=== PATIENT | male | born 1980 | race Caucasian/White ===

== ENCOUNTER 2019-12-22 05:50 | Day surgery (SDC) | payer OTHER ==
[2019-12-22 07:18] VITALS: BMI 37.1
[2019-12-22] MEDS ORDERED: ONDANSETRON 4 MG/2 ML VIAL IVPUSH PRN (07:19)
--- NOTE | 2019-12-22 07:26 | HP ---
CHIEF COMPLAINT: Major depression PCP: Primary Psychiatrist: HISTORY OF PRESENT ILLNESS: 39 year-old male with a PMH significant for major depressive disorder. First received ECT in past month while hospitalized at [facility]. He presents today for ECT. Recent Events: * none reported PAST MEDICAL HISTORY: Major depressive disorder PAST SURGICAL HISTORY: Social History: Smoking: no Alcohol: no Drugs: no Allergies No Known Drug Allergies Allergy (Verified 12/21/19 14:19) HOME MEDICATIONS: Home Medications Medication Instructions Recorded Atorvastatin Ca [Lipitor] 20 mg PO HS 12/21/19 Clonazepam [Klonopin] 1 mg PO BID 12/21/19 Fenofibric Acid (Choline) 135 mg PO DAILY 12/21/19 [Trilipix] Lamotrigine [Lamictal] 150 mg PO DAILY 12/21/19 Levothyroxine [Synthroid -] 25 mcg PO DAILY 12/21/19 Lisinopril [Prinivil] 5 mg PO DAILY 12/21/19 Metformin HCl [Glucophage] 500 mg PO BID 12/21/19 Olanzapine [Zyprexa] 40 mg PO HS 12/21/19 Sertraline HCl [Zoloft] 200 mg PO DAILY 12/21/19 REVIEW OF SYSTEMS CONSTITUTIONAL: Absent: fever, chills, diaphoresis, generalized weakness, malaise, loss of appetite, weight change HEENT: Absent: rhinorrhea, nasal congestion, throat pain, throat swelling, difficulty swallowing, mouth swelling, ear pain, eye pain, visual changes CARDIOVASCULAR: Absent: chest pain, syncope, palpitations, irregular heart rate, lightheadedness, peripheral edema RESPIRATORY: Absent: cough, shortness of breath, dyspnea with exertion, orthopnea, wheezing, stridor, hemoptysis GASTROINTESTINAL: Absent: abdominal pain, abdominal distension, nausea, vomiting, diarrhea, constipation, melena, hematochezia GENITOURINARY: Absent: dysuria, frequency, urgency, hesitancy, hematuria, flank pain, genital pain MUSCULOSKELETAL: Absent: myalgia, arthralgia, joint swelling, back pain, neck pain SKIN: Absent: rash, itching, pallor HEMATOLOGIC/IMMUNOLOGIC: Absent: easy bleeding, easy bruising, lymphadenopathy, frequent infections ENDOCRINE: Absent: unexplained weight gain, unexplained weight loss, heat intolerance, cold intolerance NEUROLOGIC: Absent: headache, focal weakness or paresthesias, dizziness, unsteady gait, seizure, mental status changes, bladder or bowel incontinence PHYSICAL EXAMINATION Vital Signs - 24 hr 12/22/19 07:15 Temperature 98.0 F Pulse Rate 71 Respiratory 18 Rate Blood Pressure 114/63 O2 Sat by Pulse 99 Oximetry (%) GENERAL: Awake, alert, and fully oriented, in no acute distress. HEAD: Normal with no signs of trauma. EYES: Pupils equal, round and reactive to light, sclera anicteric, conjunctiva clear. LUNGS: Breath sounds equal, clear to auscultation bilaterally. No wheezes, and no crackles. No accessory muscle use. HEART: Regular rate and rhythm, normal S1 and S2 ABDOMEN: Soft, nontender, not distended MUSCULOSKELETAL: Normal range of motion at all joints. No bony deformities or tenderness. No CVA tenderness. UPPER EXTREMITIES: 2+ pulses, warm, well-perfused. No cyanosis. No clubbing. No peripheral edema. LOWER EXTREMITIES: 2+ pulses, warm, well-perfused. No calf tenderness. No peripheral edema. NEUROLOGICAL: Cranial nerves II-XII intact. Normal speech. Laboratory Results - last 24 hr 12/22/19 07:10 POC Glucometer 86 ASSESSMENT/PLAN: 39 year-old male with a PMH significant for HTN, major depressive disorder. He presents today for ECT. Cardiac --no cardiac history --Revised Cardiac Risk Index for Pre-Operative Risk: 0 points, 0.4% risk of major cardiac event Pulmonary --no pulmonary history Neurological --no neurological or neurosurgical history; no history of trauma Anesthesia --no reported problems with anesthesia ECT is a low risk procedure. The relative benefits of the planned procedure outweigh the relative risks for this patient at this time. Visit type - Emergency Visit Emergency Visit: No - New Patient This patient is new to me today: Yes Date on this admission: 12/22/19 - Critical Care Critical Care patient: No
[2019-12-22] MEDS ORDERED: LACTATED RINGERS SOLUTION 1,000 ML IV SCH (07:30)
[2019-12-22 07:59] LABS: BASO % 0.8 % (0-2.0); EOS % 1.7 % (0-4.5); MCH 29.1 pg (25.7-33.7); MCHC 33.2 g/dl (32.0-35.9); MEAN CELL VOLUME 87.5 fl (80-96); MEAN PLT VOLUME 10.1 fl (7.5-11.1); MONO % 7.5 % (3.8-10.2); PLATELET COUNT 333 K/MM3 (134-434); RBC 4.12 M/mm3 (4.00-5.60); RDW 13.4 % (11.9-15.9); WHITE BLOOD COUNT 9.7 K/mm3 (4.0-10.8)
[2019-12-22 08:06] LABS: ALBUMIN 4.4 g/dl (3.4-5.0); BILIRUBIN,TOTAL 0.6 mg/dl (0.2-1); CALCIUM 9.8 mg/dl (8.5-10); CREATININE 0.8 mg/dl (0.55-1.3); MAGNESIUM 1.9 mg/dL (1.8-2.4); POTASSIUM 4.2 mmol/L (3.5-5.1); TOT PROT 6.9 g/dl (6.4-8.2)
[2019-12-22 09:28] VITALS: TEMP 97.9
[2019-12-22 09:30] VITALS: BP 118/64; PULSE 71
== END 2019-12-22 09:00 | disposition home or self-care (01) ==
LOC: FECT 05:50
PROVIDERS: ATTEND Psychiatry & Neurology Psychiatry
PROC: GZB4ZZZ Other Electroconvulsive Therapy (ICD-10-PCS; principal; 2019-12-22 07:00)
DX: F25.9 Schizoaffective disorder, unspecified (principal)
CPT/HCPCS: 36415; 80053; 82962; 83735; 85025